=== PATIENT | female | born 1960 | race Caucasian/White ===

== ENCOUNTER → 2016-07-09 | Outpatient (CLI) | payer BC ==
--- NOTE | 2016-07-09 09:49 | REPMRS ---
Patient History The patient states she had a clinical breast exam in 07/2016. Patient is postmenopausal. No known family history of cancer. Reductions of both breasts, 2008. Digital Woman Screen Mammo: July 09, 2016 - Exam #: [id number] Bilateral CC and MLO view(s) were taken. Technologist: Polina Adam, Technologist Prior study comparison: April 24, 2015, digital woman screen mammo performed at [facility] to [facility]. January 25, 2014, digital woman screen mammo performed at [facility] to [facility]. FINDINGS: There are scattered fibroglandular densities. There has been no change in the appearance of the mammogram from the prior studies. There is a mild amount of residual fibroglandular tissue which is fairly symmetric. There is no interval development of dominant mass, architectural distortion, or clustered microcalcification suggestive of malignancy. ASSESSMENT: BI-RADS/ACR category 1 mammogram. Negative. Recommendation Routine screening mammogram in 1 year (for women over age 40). This mammogram was interpreted with the aid of an FDA-approved computer-aided dectection system. Electronically Signed By: Hugh Barros MD 07/09/16 0949
== END ==
LOC: M WHC 08:13
PROVIDERS: ATTEND Nurse Practitioner Family
DX: Z12.31 Encounter for screening mammogram for malignant neoplasm of breast (principal); Z78.0 Asymptomatic menopausal state

== ENCOUNTER → 2016-10-08 | Outpatient (REF) | payer BC | LOC: M LAB REF 12:48 | PROVIDERS: ATTEND Physician Assistant | DX: R30.0 Dysuria (principal) ==

== ENCOUNTER → 2017-08-12 | Outpatient (CLI) | payer BC | LOC: M WHC 09:01 | DX: Z12.31 Encounter for screening mammogram for malignant neoplasm of breast (principal); Z78.0 Asymptomatic menopausal state | CPT/HCPCS: 77067 ==

== ENCOUNTER → 2017-11-04 | Outpatient (REF) | payer OTHER ==
[2017-11-04 21:26] LABS: APPEARANCE, URINE CLOUDY (CLEAR); BACTERIA, URINE AUTO 1+ (NEGATIVE); BILIRUBIN, URINE AUTO NEGATIVE (NEGATIVE); BLOOD, URINE BLOOD 2+ (NEGATIVE); COLOR, URINE YELLOW (YELLOW); GLUCOSE, URINE (UA) AUTO NEGATIVE (NEGATIVE); KETONE, URINE AUTO NEGATIVE (NEGATIVE); LEUKOCYTE ESTERASE, URINE AUTO 3+ (NEGATIVE); NITRITE, URINE AUTO NEGATIVE (NEGATIVE); PROTEIN, URINE AUTO NEGATIVE (NEGATIVE); RBC, URINE AUTO 93 /HPF (0-3); SPECIFIC GRAVITY URINE AUTO 1.013 (1.002-1.035); SQUAMOUS EPITHELIAL CELL UR AU 0 /HPF (0-6); UROBILINOGEN, URINE AUTO 0.2 mg/dL (0.0-2.0); WBC, URINE AUTO TNTC /HPF (0-3)
== END ==
LOC: M LAB REF 15:27
DX: N39.0 Urinary tract infection, site not specified (principal)

== ENCOUNTER → 2017-11-26 | Outpatient (REF) | payer OTHER | LOC: M SFHCWAGY 17:06 | DX: R10.2 Pelvic and perineal pain (principal) ==

== ENCOUNTER → 2018-05-02 | Outpatient (CLI) | payer BC, OTHER | LOC: M WUC 10:13 | DX: S20.212A Contusion of left front wall of thorax, initial encounter (principal); X58.XXXA Exposure to other specified factors, initial encounter; Y92.9 Unspecified place or not applicable | CPT/HCPCS: 71101 ==

== ENCOUNTER → 2018-09-06 | Outpatient (REF) | payer OTHER ==
[2018-09-08 14:24] LABS: HPV HYBRID CAPTURE II Negative (Negative)
== END ==
LOC: M SFHCWAGY 14:51
PROVIDERS: ATTEND Nurse Practitioner Family
DX: Z12.72 Encounter for screening for malignant neoplasm of vagina (principal)

== ENCOUNTER → 2018-09-06 | Outpatient (CLI) | payer BC ==
--- NOTE | 2018-09-06 15:34 | REPMRS ---
Patient History The patient states she had a clinical breast exam in 09/2018. Patient is postmenopausal. No known family history of cancer. Reductions of both breasts, 2008. Taking estrogen for 6 months. 3D TOMOSYNTHESIS WAS PERFORMED. Digital Woman Screen Mammo: September 06, 2018 - Exam #: [id number] Bilateral CC and MLO view(s) were taken. Technologist: Polina Adam, Technologist Prior study comparison: August 12, 2017, digital woman screen mammo performed at [facility]. July 09, 2016, digital woman screen mammo performed at [facility] to [facility]. FINDINGS: There are scattered fibroglandular densities. There has been no change in the appearance of the mammogram from the prior studies. There is a mild amount of residual fibroglandular tissue which is fairly symmetric. There is no interval development of dominant mass, architectural distortion, or clustered microcalcification suggestive of malignancy. Assessment: BI-RADS/ACR category 1 mammogram. Negative Mammogram. Recommendation Routine screening mammogram in 1 year (for women over age 40). This mammogram was interpreted with the aid of an FDA-approved computer-aided dectection system. Electronically Signed By: Hugh Barros MD 09/06/18 0079
== END ==
LOC: M WHC 14:34
PROVIDERS: ATTEND Nurse Practitioner Family
DX: Z12.31 Encounter for screening mammogram for malignant neoplasm of breast (principal); Z78.0 Asymptomatic menopausal state; Z98.890 Other specified postprocedural states; Z92.23 Personal history of estrogen therapy

== ENCOUNTER → 2020-11-14 | Outpatient (CLI) | payer BC, OTHER ==
--- NOTE | 2020-11-14 15:50 | REP ---
INDICATION: JEREMÍAS SCR MAMMO. COMPARISON: Multiple TECHNIQUE: Digital screening mammography was carried out bilaterally in the CC and MLO projections and compared to the prior exams. Both 2D and 3D modalities were utilized.. By history the patient has no complaints of a palpable breast abnormality or other significant breast complaints. FINDINGS: The breasts are unchanged in size and shape. Once again, dense heterogenous fibroglandular elements are seen bilaterally. In the lower inner aspect of the left breast there is a potential kizzy asymmetric density. No other suspicious features are seen in either breast. There are stable benign calcifications bilaterally. There is no skin thickening or nipple retraction. The Volpara volumetric breast density pattern is b. IMPRESSION: BIRADS/ACR category 0. Potential kizzy density seen in left breast as described above for which diagnostic digital magnified spot compression views recommended in the CC and MLO projections along with diagnostic ultrasonography if necessary. This patient's Tyrer-Cuzick lifetime breast cancer risk assessment score is 7.2%. This mammogram was interpreted with the aid of an FDA-approved computer-aided detection system. The patient states she had a clinical breast exam in November 2020 . The patient letter being requested is M0. RECOMMENDATION: As above <Electronically signed by Prabhakar Landis > 11/14/20 9544
== END ==
LOC: M WHC 14:06
PROVIDERS: ATTEND Advanced Practice Midwife
DX: Z12.31 Encounter for screening mammogram for malignant neoplasm of breast (principal)

== ENCOUNTER → 2020-11-19 | Outpatient (CLI) | payer BC, OTHER ==
--- NOTE | 2020-11-19 13:55 | REP ---
INDICATION: LEFT BREAST TROY DENSITY ADDITIONAL VIEWS; ADDITIONAL VIEWS LEFT BREAST NEODENSITY. COMPARISON: Comparison screening mammography November 14, 2020. Comparison is also made with prior left breast mammography September 06, 2018 and October 10, 2017. TECHNIQUE: Magnified focal spot-compression CC and MLO views are obtained. A true mediolateral view and 3D tomography view are acquired. Targeted left breast sonography is performed about the 9 o'clock position. This mammogram was interpreted with the aid of an FDA-approved computer-aided detection system. FINDINGS: Scattered fibroglandular elements are again noted. The nodular troy density recently identified on screening mammography in the medial left breast persists on diagnostic images. It has well-circumscribed margins and a 7 mm greatest diameter. Is in the middle 3rd of the left breast. No other suspicious mammographic finding. The Volpara volumetric breast density pattern is b. Targeted ultrasound: Targeted left breast sonography is performed the 9 o'clock position. Fairly homogeneous background echotexture is seen. There is a somewhat irregular oval-shaped hypoechoic structure in the 9 o'clock position of the left breast 4 cm from the nipple measuring 6 x 3 x 3 mm. It is largely anechoic with some internal echoes and wall irregularity. This does not meet criteria of a simple cyst. In IMPRESSION: BIRADS/ACR category 4 suspicious left breast mammographic and sonographic findings. Hypoechoic nodule or complex cyst seen by ultrasound. New density seen mammographically in the left breast. This patient's Tyrer-zi lifetime breast cancer risk assessment score is 7.2%. RECOMMENDATION: Ultrasound-guided needle biopsy of the 9 o'clock nodule in the left breast with marker clip placement and post clip placement mammography recommended.. The patient letter being requested is M4. <Electronically signed by Art Lee > 11/19/20 0224
== END ==
LOC: M WHC 11:51
PROVIDERS: ATTEND Advanced Practice Midwife
DX: R92.2 Inconclusive mammogram (principal)
CPT/HCPCS: 76642; 77065; G0279

== ENCOUNTER → 2020-12-11 | Outpatient (CLI) | payer BC, OTHER ==
[~2020-12-11] MED LIST: ESTR62CR PV; LEVO75CA2 PO; LIPI10TA PO; LORA-674 PO; VITAD400CA FT
[2020-12-11 08:57] VITALS: BP 124/82
--- NOTE | 2020-12-11 22:15 | ROOPDOC ---
[facility] Report Of Operation Report of Operation DATE OF PROCEDURE: 12/11/20 DIAGNOSIS: left breast suspicious lesion PROCEDURE: ultrasound guided attempted aspiration of left breast suspicious lesion, followed by ultrasound guided biopsy of left breast suspicious lesion with the clip placement SURGEON: Nikolas Duque BLOOD LOSS: minimal COMPLICATIONS: none Lidocaine 1% LOT [id number] Expiration 01/2024 Sodium Bicarbonate 8.4% LOT [id number] Expiration 04/2022 Hydromark clip LOT [id number] Expiration 05/2023 SHAPE :4 Bx device: BARD [id number] x10 cm LOT [id number] Expiration 10/2023 Informed consent was obtained. The most common risk and possible complications including bleeding, hematoma, bruising, infection, injury to surrounding structures were explained to the patient and the patient expressed understanding. Patient was placed on the bed in the supine position. Appropriate time out was done stating patients name, date of , and the procedure to be performed. The left breast was prepped and draped in the usual fashion. The ultrasound was used to confirm the location of the lesion in the left breast at 9:00 2 centimeters from the nipple. Procedure was started with attempted aspiration of the lesion. Plain Lidocaine 1% and 8.4% sodium bicarbonate 10:1 mix was used to anesthetize the skin, and tissues along the anticipated aspiration tract. 18 G needle was used to aspirate cyst under direct ultrasound guidance. The lesion did not collapse despite num erous passes of the needle through the lesion. Very minimal amount of fluid was aspirated, possibly due to infiltration of the area with local anesthetic. Images were captures. Since the sonographic target persisted post attempted aspiration, a decision was made to pursue biopsy. Small skin incision was made with blade number 11. BARD Marquee 14G cannula with introducer ([id number]) was inserted through the incision and advanced under the ultrasound guidance to position immediately adjacent to the lesion. Next, the introducer was removed and BARD Marquee 14G biopsy device was places in the cannula. Pre-biopsy imaging, and post-biopsy imaging were captured. Two core biopsies were taken of the lesion. After second core biopsy, lesion was no longer visible. No additional cores were taken. Specimen was placed in formaldehyde, labeled with appropriate biopsy site and patients name, and sent to pathology for evaluation. Next, the biopsy device was withdrawn and a clip introducer was inserted into the biopsy site via the cannula. SHAPE 4 Hydromark clip was deployed under sonographic guidance. Post-clip placement image was captured. Manual pressure over the biopsy cavity and tract was held after the clip introducer was withdrawn. No bleeding was noted upon removal of the pressure. Post-biopsy mammogram of the left breast was obtained and showed clip in expected position. On my review of the imaging, the previously identified nodule is no longer visible. Postprocedural dressing was placed. Patient tolerated procedure well. Discharge instructions were discussed with the patient and the patient expressed understanding. NIKOLAS DUQUE DO Dec 11, 2020 22:15
== END ==
LOC: M WHCPRO 06:18
PROVIDERS: ATTEND Surgery
DX: N60.22 Fibroadenosis of left breast (principal)

== ENCOUNTER → 2021-05-19 | Outpatient (CLI) | payer BC, OTHER ==
--- NOTE | 2021-05-21 07:15 | REP ---
INDICATION: Status post biopsy COMPARISON: Left breast ultrasound, 12/11/2020. TECHNIQUE: Targeted images of the left breast were obtained. FINDINGS: [place] marker clip is seen within a irregular hypoechoic nodule, measuring 6 mm in diameter. IMPRESSION: Biopsy clip is seen within a nodule at 9 o'clock in the left breast. <Electronically signed by Cliff Whaley > 05/21/21 0733
== END ==
LOC: M WHC 11:00
PROVIDERS: ATTEND Nurse Practitioner Women's Health
DX: R92.8 Other abnormal and inconclusive findings on diagnostic imaging of breast (principal); N63.20 Unspecified lump in the left breast, unspecified quadrant

== ENCOUNTER → 2021-07-28 | Outpatient (REF) | payer OTHER, BC | LOC: M LAB REF 16:17 | PROVIDERS: ATTEND Nurse Practitioner Adult Health | DX: K21.9 Gastro-esophageal reflux disease without esophagitis (principal) ==

== ENCOUNTER → 2022-12-22 | Outpatient (CLI) | payer BC, OTHER | LOC: M WHC 07:29 | PROVIDERS: ATTEND Nurse Practitioner Family | DX: Z12.31 Encounter for screening mammogram for malignant neoplasm of breast (principal) ==

== ENCOUNTER → 2022-12-22 | Outpatient (REF) | payer BC, OTHER | LOC: M SFHCWAGY 10:11 → M LAB REF 10:11 | PROVIDERS: ATTEND Nurse Practitioner Family | DX: Z12.4 Encounter for screening for malignant neoplasm of cervix (principal) | CPT/HCPCS: 87624; G0123 ==

== ENCOUNTER 2023-03-12 21:51 | Emergency (ER) | payer BC, OTHER ==
[~2023-03-12] VITALS: Ht 162.6 cm; Wt 70.5 kg
[~2023-03-12 21:51] MED LIST changes: +LORA-1041 PO; -LORA-674 PO
[2023-03-12 21:52] VITALS: BP 169/80; TEMP 97.2; O2SAT 100
[2023-03-13] MEDS ORDERED: OXYCODONE/APAP 5MG/325MG(HOME DOSE PACK) PO ONE (03:00)
== END 2023-03-13 03:20 | disposition home or self-care (01) ==
LOC: M ED 21:51
DX: S93.401A Sprain of unspecified ligament of right ankle, initial encounter (principal); S92.014A Nondisplaced fracture of body of right calcaneus, initial encounter for closed fracture; W10.8XXA Fall (on) (from) other stairs and steps, initial encounter; E78.5 Hyperlipidemia, unspecified; E03.9 Hypothyroidism, unspecified; F10.10 Alcohol abuse, uncomplicated; Z79.02 Long term (current) use of antithrombotics/antiplatelets; Z79.899 Other long term (current) drug therapy; Y92.009 Unspecified place in unspecified non-institutional (private) residence as the place of occurrence of the external cause

== ENCOUNTER → 2023-09-08 | Outpatient (CLI) | payer BC, OTHER | LOC: M WHC 09:23 | PROVIDERS: ATTEND Nurse Practitioner Adult Health | DX: Z00.00 Encounter for general adult medical examination without abnormal findings (principal); E55.9 Vitamin D deficiency, unspecified; M85.89 Other specified disorders of bone density and structure, multiple sites ==

== ENCOUNTER → 2023-12-28 | Outpatient (CLI) | payer BC | LOC: M WHC 10:21 | PROVIDERS: ATTEND Nurse Practitioner Family | DX: Z12.31 Encounter for screening mammogram for malignant neoplasm of breast (principal); Z53.9 Procedure and treatment not carried out, unspecified reason ==

== ENCOUNTER → 2023-12-28 | Outpatient (CLI) | payer BC | LOC: M WHC 08:36 | PROVIDERS: ATTEND Nurse Practitioner Family | DX: Z12.31 Encounter for screening mammogram for malignant neoplasm of breast (principal); R92.313 Mammographic fatty tissue density, bilateral breasts ==

== ENCOUNTER → 2024-05-25 | Outpatient (REF) | payer BC ==
[2024-05-25 13:45] LABS: APPEARANCE, URINE CLEAR (CLEAR); BACTERIA, URINE AUTO NEGATIVE (NEGATIVE); BILIRUBIN, URINE AUTO NEGATIVE (NEGATIVE); BLOOD, URINE BLOOD NEGATIVE (NEGATIVE); COLOR, URINE YELLOW (YELLOW); GLUCOSE, URINE (UA) AUTO NEGATIVE (NEGATIVE); KETONE, URINE AUTO NEGATIVE (NEGATIVE); LEUKOCYTE ESTERASE, URINE AUTO NEGATIVE (NEGATIVE); MUCUS, URINE SMALL (NEGATIVE); NITRITE, URINE AUTO NEGATIVE (NEGATIVE); PROTEIN, URINE AUTO NEGATIVE (NEGATIVE); RBC, URINE AUTO 2 /HPF (0-3); SPECIFIC GRAVITY URINE AUTO 1.025 (1.002-1.035); SQUAMOUS EPITHELIAL CELL UR AU 1 /HPF (0-6); UROBILINOGEN, URINE AUTO 0.2 mg/dL (0.0-2.0); WBC, URINE AUTO 1 /HPF (0-3)
== END ==
LOC: M LAB REF 12:27
PROVIDERS: ATTEND Physician Assistant
DX: N39.0 Urinary tract infection, site not specified (principal)

== ENCOUNTER → 2024-06-29 | Outpatient (REF) | payer BC ==
[2024-06-29 12:54] LABS: APPEARANCE, URINE CLEAR (CLEAR); BACTERIA, URINE AUTO NEGATIVE (NEGATIVE); BILIRUBIN, URINE AUTO NEGATIVE (NEGATIVE); BLOOD, URINE BLOOD NEGATIVE (NEGATIVE); COLOR, URINE YELLOW (YELLOW); GLUCOSE, URINE (UA) AUTO NEGATIVE (NEGATIVE); KETONE, URINE AUTO NEGATIVE (NEGATIVE); LEUKOCYTE ESTERASE, URINE AUTO NEGATIVE (NEGATIVE); MUCUS, URINE SMALL (NEGATIVE); NITRITE, URINE AUTO NEGATIVE (NEGATIVE); PROTEIN, URINE AUTO NEGATIVE (NEGATIVE); RBC, URINE AUTO 1 /HPF (0-3); SPECIFIC GRAVITY URINE AUTO 1.024 (1.002-1.035); SQUAMOUS EPITHELIAL CELL UR AU 1 /HPF (0-6); UROBILINOGEN, URINE AUTO 0.2 mg/dL (0.0-2.0); WBC, URINE AUTO 0 /HPF (0-3)
== END ==
LOC: M LAB REF 12:07
PROVIDERS: ATTEND Physician Assistant Medical
DX: N39.0 Urinary tract infection, site not specified (principal)

== ENCOUNTER → 2025-01-10 | Outpatient (CLI) | payer BC ==
[~2025-01-10] MED LIST changes: -LEVO75CA2 PO; +LEVO75CA3 PO
== END ==
LOC: M WHC 08:33
PROVIDERS: ATTEND Nurse Practitioner Family
DX: Z12.31 Encounter for screening mammogram for malignant neoplasm of breast (principal)

== ENCOUNTER → 2025-02-28 | Outpatient (REF) | payer BC | LOC: M LAB REF 18:11 | PROVIDERS: ATTEND Nurse Practitioner Adult Health | DX: R19.7 Diarrhea, unspecified (principal) ==